=== PATIENT | male | born 1950 | race Caucasian/White ===

== ENCOUNTER 2018-01-16 05:15 | Inpatient (IN) | payer MEDICARE ==
[~2018-01-16] VITALS: Ht 177.8 cm; Wt 89.2 kg
[~2018-01-16 05:15] MED LIST: ALBU8.5H8 INH; ATOR40TA78 PO; LISI-167 PO; ZOLP10TA5 PO
[2018-01-16 06:15] VITALS: BP 134/90
[2018-01-16] MEDS ORDERED: THROMBIN 5,000 UNIT VIAL TP ONE (06:18)
[2018-01-16] MEDS ORDERED: BACITRACIN 50,000 UNIT ONE (06:18)
[2018-01-16] MEDS ORDERED: BUPIVACAINE/PF 0.5% ONE (06:18)
[2018-01-16] MEDS ORDERED: EPINEPHRINE 1 MG/ML, 1ML ONE (06:18)
[2018-01-16] MEDS ORDERED: LACTATED RINGERS 1,000 ML IV SCH (06:22)
[2018-01-16] MEDS ORDERED: LIDOCAINE-MPF 1%, 2ML ONE (06:26)
[2018-01-16] MEDS ORDERED: LIDOCAINE-MPF 1%, 2ML INFIL ONE (06:30)
[2018-01-16] MEDS ORDERED: PROPOFOL 10 MG/ML, 20ML ONE (06:36)
[2018-01-16] MEDS ORDERED: ROCURONIUM 10 MG/ML,10ML ONE (06:36)
[2018-01-16] MEDS ORDERED: MIDAZOLAM 1 MG/ML, 2ML ONE (06:36)
[2018-01-16] MEDS ORDERED: FENTANYL PF 250 MCG/5ML ONE (06:36)
[2018-01-16] MEDS ORDERED: PROPOFOL 100 ML ONE (06:38)
[2018-01-16] MEDS ORDERED: DEXAMETHASONE 4 MG/ML, 1ML ONE (07:15)
[2018-01-16] MEDS ORDERED: CEFAZOLIN 1,000 MG ONE ×2 (07:18)
[2018-01-16] MEDS ORDERED: ONDANSETRON 2MG/ML, 2ML ONE (08:23)
[2018-01-16] MEDS ORDERED: ALBUTEROL SULFATE 2.5 MG/3 ML NPPB PRN (08:30)
[2018-01-16] MEDS ORDERED: OXYcodone 5 MG/5 ML ORAL.SOL UDC PO PRN (08:30)
[2018-01-16] MEDS ORDERED: hydrALAzine 20 MG/ML, 1ML IV PRN (08:30)
[2018-01-16] MEDS ORDERED: ONDANSETRON 2MG/ML, 2ML IVPush PRN ×2 (08:30→09:00)
[2018-01-16] MEDS ORDERED: MEPERIDINE/PF 25MG/0.5ML IVPush PRN (08:30)
[2018-01-16] MEDS ORDERED: LABETALOL 5MG/ML, 20ML IV PRN (08:30)
[2018-01-16] MEDS ORDERED: HYDROmorphone 1 MG/ML, 1ML IV PRN (08:30)
[2018-01-16] MEDS ORDERED: ACETAMINOPHEN 325 MG TABLET PO PRN (08:30)
[2018-01-16] MEDS ORDERED: PROMETHAZINE 12.5 MG SUPP PR PRN (08:30)
[2018-01-16] MEDS ORDERED: ACETAMINOPHEN 650 MG/20.3 ML UDC ONE (08:55)
[2018-01-16] MEDS ORDERED: FENTANYL PF 100 MCG/2ML ONE (08:56)
[2018-01-16] MEDS ORDERED: OXYcodone 5 MG/5 ML ORAL.SOL UDC ONE (08:56)
[2018-01-16] MEDS: FENTANYL PF 100 MCG/2ML IV PRN ×2 (09:00→09:05)
[2018-01-16] MEDS ORDERED: METHOCARBAMOL 750 MG TABLET PO PRN (09:00)
[2018-01-16] MEDS ORDERED: DIPHENHYDRAMINE 50 MG/ML, 1ML IVPush PRN (09:00)
[2018-01-16] MEDS ORDERED: PHARMACY MAY ADJ FOR RENAL FX MC PRN (09:00)
[2018-01-16] MEDS ORDERED: HYDROcodone/APAP 5/325 TABLET PO PRN (09:00)
[2018-01-16] MEDS ORDERED: PROMETHAZINE 25 MG/ML, 1ML IM PRN (09:00)
[2018-01-16] MEDS ORDERED: ACETAMINOPHEN 650 MG SUPP PR PRN (09:00)
[2018-01-16] MEDS ORDERED: SENNA/DOCUSATE TABLET PO PRN (09:00)
[2018-01-16] MEDS ORDERED: CYCLOBENZAPRINE 10 MG TABLET PO PRN (09:00)
[2018-01-16] MEDS ORDERED: HYDROcodone/APAP 10/325 MG TABLET PO PRN (09:00)
[2018-01-16] MEDS ORDERED: morphine SULFATE 10 MG/ML, 1ML IVPush PRN (09:00)
[2018-01-16] MEDS ORDERED: BISACODYL 10 MG SUPP PR PRN (09:00)
[2018-01-16] MEDS ORDERED: CEFAZOLIN PMX 1GM/50ML 50 ML IVPB SCH (09:00)
[2018-01-16] MEDS ORDERED: morphine SULFATE 10 MG/ML, 1ML ONE (09:12)
[2018-01-16] MEDS: morphine SULFATE 10 MG/ML, 1ML IV PRN ×2 (09:15→09:25)
[2018-01-16] MEDS: D5%-0.9% NACL+KCL 20MEQ 1,000 ML IV SCH (12:47)
[2018-01-16] MEDS: SODIUM CHLORIDE FLUSH 10ML SYR IVF SCH ×2 (12:47→20:40)
[2018-01-16] MEDS: LISINOPRIL 10 MG TABLET PO SCH (12:47)
[2018-01-16 12:55] VITALS: BP 136/76
[2018-01-16] MEDS: CEFAZOLIN PMX 1GM/50ML 50 ML IVPB SCH ×2 (15:32→23:40)
[2018-01-16] MEDS: OXYcodone/APAP 5/325MG TABLET PO PRN ×2 (15:41→20:39)
[2018-01-16 20:05] VITALS: BP 132/72
[2018-01-16] MEDS ORDERED: ATORVASTATIN 40 MG TABLET PO SCH (21:00)
[2018-01-17 00:16] VITALS: BP 121/69
[2018-01-17 04:10] VITALS: BP 104/65
[2018-01-17] MEDS: OXYcodone/APAP 5/325MG TABLET PO PRN ×2 (04:11→09:37)
[2018-01-17 06:56] VITALS: BP 127/72
[2018-01-17] MEDS: D5%-0.9% NACL+KCL 20MEQ 1,000 ML IV SCH (08:00)
[2018-01-17 08:04] VITALS: BP 137/87
[2018-01-17] MEDS: LISINOPRIL 10 MG TABLET PO SCH (08:06)
[2018-01-17] MEDS: SODIUM CHLORIDE FLUSH 10ML SYR IVF SCH (08:06)
[2018-01-17] MEDS ORDERED: OXYC-302 PO (09:41)
[2018-01-17] MEDS ORDERED: CEPH-368 PO (09:42)
[2018-01-17] MEDS ORDERED: CYCL-259 PO (09:42)
[2018-01-17 10:15] VITALS: BP 137/72
== END 2018-01-17 10:19 | disposition home or self-care (01) | DRG 473 ==
LOC: ORIP 05:15 → 4NOR 09:45
PROVIDERS: ADMIT Neurological Surgery; ATTEND Neurological Surgery
PROC: 0RB30ZZ Excision of Cervical Vertebral Disc, Open Approach (ICD-10-PCS; 2018-01-16)
PROC: 4A1134G Monitoring of Peripheral Nervous Electrical Activity, Intraoperative, Percutaneous Approach (ICD-10-PCS; 2018-01-16)
PROC: 0RG10A0 Fusion of Cervical Vertebral Joint with Interbody Fusion Device, Anterior Approach, Anterior Column, Open Approach (ICD-10-PCS; principal; 2018-01-16 07:00)
DX: M48.02 Spinal stenosis, cervical region (principal); R20.2 Paresthesia of skin; Z88.5 Allergy status to narcotic agent; M50.10 Cervical disc disorder with radiculopathy, unspecified cervical region
CPT/HCPCS: 72040; C1713; J0171; J0690; J1100; J2250; J2405; J2704; J3010; J3490; C1762; J2270; J3480; J7120